=== PATIENT | female | born 1975 | race Caucasian/White ===

== ENCOUNTER 2017-07-15 07:53 | Inpatient (IN) | payer OTHER, BC ==
[~2017-07-15] VITALS: Ht 157.5 cm; Wt 111.9 kg
[2017-07-15] VITALS (10 sets, daily range): BP systolic 109–137; BP diastolic 63–85; PULSE 68–87; RESP 16–18; TEMP 96.3–98.3; O2SAT 97–100
[~2017-07-15 07:53] MED LIST: COUM5TAB PO; ENOX150P SQ; FURO20 PO; METF-324 PO; PRAV20 PO
[2017-07-15] MEDS ORDERED: METF500T PO (08:08)
[2017-07-15] MEDS ORDERED: SPIR25 PO (08:08)
[2017-07-15] MEDS ORDERED: XARE20TA PO (08:08)
[2017-07-15] MEDS ORDERED: SYNT25TA PO (08:08)
[2017-07-15] MEDS ORDERED: SODIUM CHLOR 0.9% 1000 ML INJ 1,000 ML IV SCH (08:17)
[2017-07-15] MEDS ORDERED: MORPHINE SULFATE 8 MG/ML INJ IV PUSH ONE ×2 (08:30→11:00)
[2017-07-15] MEDS ORDERED: SODIUM CHLORIDE 0.9% FLUSH 10 ML FLUSH IV FLUSH PRN (08:30)
[2017-07-15 08:47] LABS: BASOPHIL % 0.4 % (0.0-2.0); EOSINOPHIL # 0.1 TH/MM3 (0-0.4); EOSINOPHIL % 0.9 % (0.0-4.0); HEMATOCRIT 37.2 % (35.0-46.0); HEMO FLAGS DIFF FINAL; LYMPH % 16.7 % (9.0-44.0); LYMPHOCYTE # 1.2 TH/MM3 (1.0-4.8); MEAN CELL VOLUME 94.2 FL (80.0-100.0); MEAN CORPUSCULAR HEMOGLOBIN 31.7 PG (27.0-34.0); MEAN CORPUSCULAR HGB CONC 33.6 % (32.0-36.0); MONO % 11.6 % (0.0-8.0); NEUT % 70.4 % (16.0-70.0); PLATELET COUNT 203 TH/MM3 (150-450); RED BLOOD COUNT 3.95 MIL/MM3 (4.00-5.30); RED CELL DISTRIBUTION WIDTH 12.5 % (11.6-17.2)
[2017-07-15 08:54] LABS: APTT (PATIENT) 36.8 SEC (24.3-30.1); INTERNATIONAL NORMALIZED RATIO 1.1 RATIO; PROTHROMBIN TIME - PATIENT 11.8 SEC (9.8-11.6)
[2017-07-15 09:03] LABS: BICARBONATE 26.3 MEQ/L (21.0-32.0); POTASSIUM 4.4 MEQ/L (3.5-5.1)
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
[2017-07-15] MEDS ORDERED: PROPOFOL 200 MG/20 ML AMP IV ONE (09:30)
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
--- NOTE | 2017-07-15 11:05 | RADRPT ---
EXAM DATE/TIME: 07/15/2017 10:40 [facility] COMPARISON: No previous studies available for comparison. INDICATIONS : Post reduction right wrist. MEDICAL HISTORY : None. SURGICAL HISTORY : None. ENCOUNTER: Subsequent ACUITY: 1 day PAIN SCORE: 10/10 LOCATION: Right wrist FINDINGS: Minimal angulation and overriding remains. Bony fragment is seen above the ulna. CONCLUSION: Alignment as described above. Young Hutchinson MD FACR on July 15, 2017 at 11:03 Board Certified Radiologist. This report was verified electronically.
[2017-07-15] MEDS ORDERED: BUSP5TAB PO (11:21)
[2017-07-15] MEDS ORDERED: WELLTAB39 PO (11:21)
[2017-07-15] MEDS ORDERED: HYDROmorphone HCL PF 1 MG/ML VIAL IV PRN (11:30)
[2017-07-15] MEDS ORDERED: LACTULOSE SYRUP 20 GM/30 ML CUP PO PRN (11:30)
[2017-07-15] MEDS ORDERED: MAGNESIUM HYDROXIDE SUSP 30 ML CUP PO PRN (11:30)
[2017-07-15] MEDS ORDERED: oxyCODONE/ACETAMINOPHEN 5 MG/325 MG TAB PO PRN (11:30)
[2017-07-15] MEDS ORDERED: NALOXONE HCL 0.4 MG/ML AMP IV PRN (11:30)
[2017-07-15] MEDS ORDERED: ACETAMINOPHEN 325 MG TAB PO PRN (11:30)
[2017-07-15] MEDS ORDERED: oxyCODONE/ACETAMINOPHEN 10 MG/325 MG TAB PO PRN (11:30)
[2017-07-15] MEDS ORDERED: HYDROmorphone HCL 2 MG TAB PO PRN (11:30)
[2017-07-15] MEDS ORDERED: BISACODYL 10 MG SUPP RECTAL PRN (11:30)
[2017-07-15] MEDS ORDERED: SENNOSIDES 8.6 MG TAB PO PRN (11:30)
[2017-07-15] MEDS ORDERED: DEXTROSE 50% IN WATER 50 ML VIAL(D50) IV PUSH PRN (11:45)
[2017-07-15] MEDS ORDERED: GLUCAGON 1 MG/ML VIAL OTHER PRN (11:45)
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
[2017-07-15] MEDS: ONDANSETRON HCL 4 MG/2 ML VIAL IVP PRN ×2 (13:35→20:24)
[2017-07-15] MEDS: HYDROmorphone HCL PF 1 MG/ML VIAL IV PRN ×2 (13:35→20:19)
[2017-07-15] MEDS: INSULIN NovoLIN REGULAR SUPPLEMENTAL SCALE SQ SCH ×2 (16:26→20:42)
[2017-07-15] MEDS: DOCUSATE SODIUM 50 MG/SENNA 8.6 MG TAB PO SCH (20:19)
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
[2017-07-16] VITALS (8 sets, daily range): BP systolic 130–136; BP diastolic 68–77; PULSE 72–86; RESP 16–18; TEMP 95.5–97.8; O2SAT 96–99
[2017-07-16] MEDS: HYDROmorphone HCL PF 1 MG/ML VIAL IV PRN (04:32)
[2017-07-16] MEDS: ONDANSETRON HCL 4 MG/2 ML VIAL IVP PRN (05:26)
[2017-07-16] MEDS ORDERED: GENTAMICIN SULFATE 80 MG/2 ML VIAL ONE (05:38)
[2017-07-16] MEDS ORDERED: VANCOMYCIN 500 MG VIAL ONE (05:38)
[2017-07-16] MEDS ORDERED: LEVOTHYROXINE SODIUM 50 MCG TAB PO SCH (06:00)
[2017-07-16 06:50] LABS: AUTOMATED NEUTROPHIL # 4.2 TH/MM3 (1.8-7.7); BASOPHIL % 0.4 % (0.0-2.0); EOSINOPHIL % 0.5 % (0.0-4.0); HEMATOCRIT 38.5 % (35.0-46.0); HEMO FLAGS DIFF FINAL; LYMPHOCYTE # 1.5 TH/MM3 (1.0-4.8); MEAN CORPUSCULAR HEMOGLOBIN 31.8 PG (27.0-34.0); MEAN CORPUSCULAR HGB CONC 33.5 % (32.0-36.0); MONO % 11.4 % (0.0-8.0); NEUT % 64.7 % (16.0-70.0); PLATELET COUNT 206 TH/MM3 (150-450); RED BLOOD COUNT 4.05 MIL/MM3 (4.00-5.30); RED CELL DISTRIBUTION WIDTH 12.8 % (11.6-17.2); WHITE BLOOD COUNT 6.4 TH/MM3 (4.0-11.0)
[2017-07-16] MEDS: INSULIN NovoLIN REGULAR SUPPLEMENTAL SCALE SQ SCH ×3 (07:00→16:00)
[2017-07-16] MEDS: DOCUSATE SODIUM 50 MG/SENNA 8.6 MG TAB PO SCH (07:08)
--- NOTE | 2017-07-16 07:11 | PD.ORT.PN ---
Subjective Subjective Remarks Pain controlled. Alert and oriented 3, no new complaints Objective Vitals Vital Signs Date Time Temp Pulse Resp B/P (MAP) Pulse Ox O2 Delivery O2 Flow Rate FiO2 07/16/17 06:02 97 Nasal Cannula 5.00 07/16/17 04:00 97.8 86 16 133/70 (91) 97 07/16/17 00:00 97.3 72 17 136/76 (96) 97 07/15/17 20:00 98.3 81 16 130/72 (91) 97 07/15/17 15:00 96.3 68 18 119/66 (83) 97 07/15/17 14:10 98.0 78 17 110/66 (81) 99 07/15/17 14:01 17 07/15/17 13:36 97.9 68 17 109/63 (78) 99 Room Air 07/15/17 12:07 97.8 72 16 120/68 (85) 99 Room Air 07/15/17 11:33 97.8 69 17 120/64 (82) 100 Room Air 07/15/17 11:04 17 07/15/17 10:20 100 Nasal Cannula 5.00 07/15/17 10:20 100 5.00 07/15/17 10:20 100 07/15/17 09:01 84 17 124/83 (97) 100 Room Air 07/15/17 08:27 16 07/15/17 08:19 18 100 Room Air 07/15/17 08:02 87 17 99 Room Air 07/15/17 08:01 97.8 87 17 137/85 (102) 98 I/O 07/15/17 07/15/17 07/15/17 07/16/17 07/16/17 07/16/17 07:00 15:00 23:00 07:00 15:00 23:00 Intake Total 1000 ml 720 ml 0 ml Balance 1000 ml 720 ml 0 ml Intake Oral 720 ml 0 ml IV Total 1000 ml # Voids 2 1 Result Diagram: 07/16/17 0605 07/15/17 0800 Other Results Laboratory Tests Test 07/15/17 08:00 Prothromb Time International Ratio 1.1 RATIO Prothrombin Time 11.8 SEC (9.8-11.6) Imaging Last [address] 07/15/17 0818 Signed Impressions: Service Date/Time: Saturday, July 15, 2017 09:16 - CONCLUSION: Normal examination. August Mcpherson Jr., MD Cervical Spine CT 07/15/1718 Signed Impressions: Service Date/Time: Saturday, July 15, 2017 09:16 - CONCLUSION: Degenerative changes at C5-C6 and C6-C7 without fracture. Spinal stenosis is mild. Young Hutchinson MD FACR Chest X-Ray 07/15/1717 Signed Impressions: Service Date/Time: Saturday, July 15, 2017 08:44 - CONCLUSION: Mild gastric distention, otherwise negative.. Young Hutchinson MD FACR Wrist X-Ray 07/15/17 0000 Signed Impressions: Service Date/Time: Saturday, July 15, 2017 10:40 - CONCLUSION: Alignment as described above. Young Hutchinson MD FACR Wrist X-Ray 07/15/17 0000 Signed Impressions: Service Date/Time: Saturday, July 15, 2017 08:30 - CONCLUSION: Complex wrist fracture or dislocation as described above. Young Hutchinson MD FACR Radius/Ulna X-Ray 07/15/17 0000 Signed Impressions: Service Date/Time: Saturday, July 15, 2017 08:25 - CONCLUSION: 1. See the wrist reported separately. 2. Fracture of the distal radial diaphysis with overlap. August Mcpherson Jr., MD Objective Remarks Bilateral lower extremities: Full range of motion neurovascularly intact Left upper extremity: Full range of motion neurovascularly intact with small abrasions over her fourth and fifth fingers Right upper extremity: No pain with shoulder or elbow palpation splint intact. Intact sensation of her radial ulnar and median nerve distributions with good capillary refills. She is able to actively extend and flex her fingers Assessment & Plan Assessment and Plan Right radial shaft fracture with disruption of distal radial ulnar joint Due to instability of fracture, surgery will be necessary. We will plan on surgery today. NPO Sign consents We'll plan on discharge this afternoon if pain is controlled and doing well Maintain splint, sling when out of bed Follow-up Dr. Ruffin or JOYCELYN in 2 weeks Denys Spann Jr. Jul 16, 2017 07:11
[2017-07-16] MEDS ORDERED: HYDR-3366 PO (07:13)
[2017-07-16 07:19] LABS: BICARBONATE 27.6 MEQ/L (21.0-32.0)
[2017-07-16 07:24] LABS: POTASSIUM 4.1 MEQ/L (3.5-5.1)
[2017-07-16] MEDS ORDERED: VANCOMYCIN HCL 1000 MG VIAL ONE (07:48)
[2017-07-16] MEDS ORDERED: ceFAZolin INJ 1,000 MG VIAL ONE (07:48)
--- NOTE | 2017-07-16 08:54 | PD.OP ---
cc: Alfred Ruffin MD Operative Report Date of Surgery: Jul 16, 2017 Preoperative Diagnosis: Displaced right radial shaft fracture with distal radial ulnar joint disruption Postoperative Diagnosis: Procedure: Open reduction internal fixation of right radial shaft with reduction of distal radial ulnar joint Anesthesia: Gen. Surgeon: Alfred Ruffin Band Instrument Repairer(s): KELLY Lindsay PA-C The surgical procedure was assisted by my physician operations assistant. My P.A. presence was necessary throughout this case for the manipulation and positioning of the surgical extremity. My P.A. was assisting me throughout the duration of this procedure. The skill set of a physician operations assistant was medically necessary to complete this procedure. During the surgical case the neurosurgical nurse was working at the back table and the physician operations assistant was directly assisting me. Operation and Findings: Patient was seen and examined preoperatively. Patient was found to have displaced right radius shaft fracture with disruption of the distal radial ulnar joint. Informed consent was obtained and operative site was marked. Patient was brought to operating room and given IV sedation and general anesthesia. Timeout procedure was performed. Operative extremity was prepped and draped with alcohol followed by Hibiclens and draped in usual sterile fashion. IV antibiotics were administered prior to incision. Procedure began with a 5 inch incision was over the volar aspect of the forearm. A standard volar approach was utilized. The interval between the radial artery and superficial radial nerve was identified. Neurovascular structures were protected. Soft tissue was elevated off the bone. Distally the pronator quadratus was elevated. Fracture site was visualized. Fracture fragments were carefully reduced. Each fracture fragment keyed in anatomic alignment. K wires were used to hold provisional fixation. A ITS plate was contoured to fit the radius. Plate was provisionally held with K wires. 3.5 cortical screws were used to compress plate to bone. Multiple screws were placed in each side of fracture. K wires were removed. Final fluoroscopy revealed excellent of fracture with well-placed hardware. At this point the distal radial ulnar joint was visualized. With the wrist in supination, of the distal radial ulnar joint was reduced and stable. Sterile dressings were applied with Xeroform 4 x 4 soft roll and Eh wrap. A long arm clamshell splint was applied to hold the wrist in supination. Patient was awakened and transferred to recovery room in stable condition. Forearm compartments were soft and compressible. Alfred Ruffin MD Jul 16, 2017 08:54
[2017-07-16] MEDS ORDERED: SPIRONOLACTONE 25 MG TAB PO SCH (09:00)
[2017-07-16] MEDS ORDERED: buPROPion HCL 150 MG EXTENDED RELEASE TAB PO SCH (09:00)
[2017-07-16] MEDS ORDERED: MORPHINE SULFATE 4 MG/ML INJ IV PUSH PRN (09:00)
[2017-07-16] MEDS ORDERED: DO NOT ADM ANY ANTICOAGULANT DRUGS PRN (09:11)
[2017-07-16] MEDS ORDERED: ACETAMINOPHEN 1000 MG/100 ML 100 ML IV ONE (09:21)
[2017-07-16] MEDS ORDERED: *morphine SULFATE 8 MG/ML PERIprocedure ONLY ONE (09:23)
[2017-07-16] MEDS ORDERED: MIDAZOLAM HCL 2 MG/2 ML VIAL ONE (09:24)
[2017-07-16] MEDS ORDERED: MORPHINE SULFATE 4 MG/ML INJ ONE (09:25)
[2017-07-16] MEDS: ACETAMINOPHEN/HYDROcodone 325 MG/7.5 MG TAB PO PRN ×3 (10:28→16:34)
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
[2017-07-16] MEDS ORDERED: PROPOFOL 200 MG/20 ML AMP IV ONE (12:00)
[2017-07-16] MEDS ORDERED: ONDANSETRON HCL 4 MG/2 ML VIAL IV PUSH ONE (12:00)
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
--- NOTE | 2017-07-16 13:53 | RADRPT ---
EXAM DATE/TIME: 07/16/2017 08:41 [facility] COMPARISON: FOREARM RIGHT (2VWS), July 15, 2017, 8:25. INDICATIONS : Open reduction internal fixation of the right forearm. MEDICAL HISTORY : None. SURGICAL HISTORY : None. ENCOUNTER: Subsequent ACUITY: 2 days PAIN SCORE: Non-responsive. LOCATION: Right forearm. FINDINGS: Anatomic alignment across fracture of the distal radius with plate and screws. CONCLUSION: Anatomic alignment. Young Hutchinson MD FACR on July 16, 2017 at 13:51 Board Certified Radiologist. This report was verified electronically.
== END 2017-07-16 18:35 | disposition home or self-care (01) | DRG 512 ==
LOC: NEPC 07:53 → NEDA 11:27 → N06A 15:11
PROVIDERS: ADMIT Hospitalist; ATTEND Hospitalist
PROC: 0PSH04Z Reposition Right Radius with Internal Fixation Device, Open Approach (ICD-10-PCS; principal; 2017-07-16 07:51)
DX: S52.501A Unspecified fracture of the lower end of right radius, initial encounter for closed fracture (principal); S52.613A Displaced fracture of unspecified ulna styloid process, initial encounter for closed fracture; E03.9 Hypothyroidism, unspecified; V43.52XA Car driver injured in collision with other type car in traffic accident, initial encounter; Y92.410 Unspecified street and highway as the place of occurrence of the external cause; E11.9 Type 2 diabetes mellitus without complications; M48.00 Spinal stenosis, site unspecified; Z79.01 Long term (current) use of anticoagulants; Z86.711 Personal history of pulmonary embolism; Z87.891 Personal history of nicotine dependence; F41.8 Other specified anxiety disorders; Z79.84 Long term (current) use of oral hypoglycemic drugs
CPT/HCPCS: 25605; 70450; 71010; 72125; 73090; 73100; 73110; 76000; 80048; 82948; 84703; 85025; 85610; 85730; 96361; 96374; 96376; 99152; C1713; J0131; J0690; J1170; J1580; J2250; J2270; J2405; J3010; J3370; J7030